=== PATIENT | male | born 2000 | race Caucasian/White ===

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

== ENCOUNTER → 2021-07-17 | Outpatient (CLI) | payer OTHER ==
[~2021-07-17] MED LIST: ERYT5OIN25 OU
--- NOTE | 2021-07-17 15:00 | REP ---
INDICATION: PAIN IN THORACIC SPINE COMPARISON: None. TECHNIQUE: PA and lateral. FINDINGS: The mediastinum and cardiac silhouette are normal. The lung monsivais are clear and without acute consolidation, effusion, or pneumothorax. The skeletal structures are intact and normal. IMPRESSION: No acute cardiopulmonary process. <Electronically signed by Blayne Shoemaker > 07/17/21 [id number]
== END ==
LOC: M PLAIMG 11:42
PROVIDERS: ATTEND Physician Assistant
DX: M54.6 Pain in thoracic spine (principal)